=== PATIENT | male | born 1955 | race Caucasian/White ===

== ENCOUNTER 2020-11-09 13:27 | Outpatient (CLI) | payer MEDICARE, SELFPAY ==
--- NOTE | ~2020-11-09 | XR_ITS ---
XR abdomen/kub 1V DATE: 11/09/2020 13:56 INDICATION: Hematuria TECHNIQUE: AP projection, 2 views COMPARISON: November 09, 2020 CT abdomen pelvis FINDINGS: No apparent urinary tract calcification. The psoas shadows are intact. No visceromegaly is evident. The bowel gas pattern is unremarkable, without evidence of obstruction. Degenerative changes of the lumbar spine. IMPRESSION: Nonspecific abdomen Reviewed, dictated and finalized at [facility]. Reviewed, dictated and finalized at [facility]. ECT CREW WORKER IMPRESSION: Nonspecific abdomen
--- NOTE | ~2020-11-09 | CT_ITS ---
EXAMINATION: CT abdomen pelvis wo/w con DATE: 11/09/2020 14:29 INDICATION: Hematuria TECHNIQUE: Computed tomography (CT) of the abdomen and pelvis was performed without and subsequently with 130 cc Omnipaque 350 intravenous contrast. Automated exposure control and iterative reconstructi on technique were employed. Exam dose: 3256.34 mGy-cm total exam DLP. COMPARISON: November 09, 2020 KUB October 29, [address] abdomen pelvis FINDINGS: The lung bases are clear of infiltrate or consolidation. Normal heart size. No pericardial or pleural effusion. Probable small hepatic cyst. The gallbladder is unremarkable. No bile duct or pancreatic duct dilatat ion. No pancreatic mass lesion or calcification. Normal splenic size. Normal morphology of the adrenal glands. There are couple of approximately 1.2-1.4 cm right renal cysts. 1.8 cm left renal cyst. No suspicious renal mass lesion is evident. No urinary tract calculus or hydroureteronephrosis. No urinary bladder wall thickening or apparent intraluminal bladder mass. There is prominent prostate enlargement impre ssing the base of the urinary bladder. Prostate calcifications. Small fat-containing left inguinal hernia. Normal caliber of the abdominal aorta. No intraperitoneal or retroperitoneal or pelvic mass lesion or adenopathy or ascites. Normal appendix. Mild left and right colon diverticulosis; no CT evidence of diverticulitis. No bowel obstruction, bowel wall thickening, pneumatosis or intraperitoneal free air. Small fat-containing umbilical hernia. Chronic fracture deformity of L4, not significantly changed since 10/29/2017. Diffuse osteopenia. Multilevel degenerative disc disease most pronounced at L2-3 and L5-S1. IMPRESSION: Prostate enlargement and calcifications No urinary tract calculus or mass lesion is evident Diverticulosis of left and right colon Chronic L4 fracture deformity Reviewed, dictated and finalized at [facility]. Reviewed, dictated and finalized at [facility]. 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
[2020-11-09 14:04] LABS: Estimated Glomerular Filt Rate 47
== END 2020-11-09 13:28 | disposition home or self-care (01) ==
PROVIDERS: Visit Provider Urology
DX: R31.9 Hematuria, unspecified (principal); N40.1 Benign prostatic hyperplasia with lower urinary tract symptoms; K57.30 Diverticulosis of large intestine without perforation or abscess without bleeding
CPT/HCPCS: 74018; 74178; Q9967

== ENCOUNTER 2021-03-27 15:23 | Emergency (ER) | payer MEDICARE, SELFPAY ==
--- NOTE | ~2021-03-27 | XR_ITS ---
XR ankle LT min 3V 03/27/2021 15:48 Indication: Left ankle pain Procedure: 4 views left ankle Comparison: No prior studies for comparison. Findings: No fracture, subluxation or dislocation. Ankle mortise intact. Talar dome within normal banks its. Small degenerative calcaneal enthesophytes. No foreign bodies. Mild diffuse soft tissue swelling .. Impression: 1: No acute bone or joint abnormality. Reviewed, dictated and finalized at [facility]. Impression: 1: No acute bone or joint abnormality.
[2021-03-27 15:31] VITALS: BP 145/91; PULSE 78; RESP 14; TEMP 36.6; O2SAT 98
--- NOTE | 2021-03-27 15:54 | ED.LOWEXIN ---
HPI - Extremity Injury (Lower) General Chief Complaint: Extremity Injury, Lower Stated Complaint: Left Foot and Ankle has pain, bruising and swollen Time Seen by Provider: 03/27/21 15:54 Source: patient Mode of arrival: ambulatory Limitations: no limitations History of Present Illness HPI Narrative: Sid Green is a 66 yo male with a PMH of hypertension, A. fib, chronic anticoagulation, gout, neuropathy, BHP, from back surgery, for evaluation of the medial left leg midshaft lower extremity. Wrestling with 13-year-old grandson on March 20. Has mild edema both legs, no acute discoloration, patient is unable to wiggle left toes due to foot drop from prior surgery. States pain is 6 out of 10 when he sitting there however patient does have neuropathy. Able to walk back from x-ray Related Data Home Medications Medication Instructions Recorded Confirmed finasteride 5 mg tablet 5 mg PO DAILY 10/14/19 03/27/21 apixaban [Eliquis] 5 mg PO BID 03/27/21 03/27/21 metoprolol succinate 100 mg PO DAILY 03/27/21 03/27/21 olmesartan-hydrochlorothiazide 1 tablet PO DAILY 03/27/21 03/27/21 Allergies Allergy/AdvReac Type Severity Reaction Status Date / Time No Known Allergies Allergy Mild Verified 03/27/21 16:14 Review of Systems Review of Systems: Narrative: CONSTITUTIONAL: Denies fever, chills, sweats. EYES: Denies visual changes, redness, discharge. ENT: Denies rhinorrhea, congestion, sore throat, otalgia. CARDIOVASCULAR: Denies chest pain, palpitations, edema. RESPIRATORY: Denies dyspnea, wheezing, cough GASTROINTESTINAL: Denies abdominal pain, nausea, vomiting, diarrhea. GENITOURINARY: Denies dysuria, hematuria, abnormal discharge SKIN: Denies rash or itching. Edema to both lower legs NEUROLOGIC: Denies numbness, or focal weakness. PSYCHIATRIC: Denies anxiety or depression. 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 There is no relevant family history pertinent to the presenting complaint. Exam Narrative: Exam Narrative: GENERAL: This is a well-nourished, well-developed patient, in mild distress. HEAD: normocephalic, atraumatic. EYES: Sclera clear/white. Vision is grossly intact. EARS: External ears normal, Hearing grossly intact. NOSE: External nose normal without nasal discharge, nares without redness, no rhinorrhea. THROAT: Mucous membranes moist, NECK: Neck supple, CARDIOVASCULAR: Regular rate and rhythm without murmurs, gallops, or rubs. RESPIRATORY: Clear to auscultation. Breath sounds equal bilaterally. No wheezes, rales, or rhonchi. GASTROINTESTINAL: Not performed SKIN: warm, intact with no suspicious lesions or rash, good texture and turgor. Mild discoloration of lower extremities both legs are mildly edematous NEURO: awake, alert, and oriented to person, place and time. There were no obvious focal neurologic abnormalities. Steady gait EXTREMITIES: Normal range of motion. Pain on left medial lower extremity with at midshaft tenderness, no erythema, no warmth BACK: Nontender without deformity Course Course Emergency Course: Patient comes to [facility] for evaluation
== END 2021-03-27 16:27 | disposition home or self-care (01) ==
PROVIDERS: Emergency Provider Nurse Practitioner; PCP Family Medicine
DX: S89.92XA Unspecified injury of left lower leg, initial encounter (principal); Y93.83 Activity, rough housing and horseplay; I48.91 Unspecified atrial fibrillation; I10 Essential (primary) hypertension; Z79.01 Long term (current) use of anticoagulants; M10.9 Gout, unspecified; N40.0 Benign prostatic hyperplasia without lower urinary tract symptoms
CPT/HCPCS: 73610; 99213; G0463